=== PATIENT | male | born 1990 | race Caucasian/White ===

== ENCOUNTER 2017-07-27 17:52 | Emergency (ER) | payer SELFPAY ==
[~2017-07-27] VITALS: Ht 188 cm; Wt 74.1 kg
[~2017-07-27 17:52] MED LIST: FLEXERIL 1010 MG/TAB PO; MOTRIN 800800 MG/TAB PO; NORCO 325 MG-51 TAB PO; PROMETHAZINE12.5 M5 PO; ZOFRAN 4MG T4 MG/TAB PO
[2017-07-27 17:55] VITALS: TEMP 98.6
[2017-07-27 18:38] LABS: COLLECTION METHOD CLEAN CATCH
[2017-07-27 18:41] LABS: BASO # 0.1 (0.0-0.2); BASO % 0.5 % (0.0-2.0); EOS # 0.1 (0.0-0.7); EOS % 0.7 % (0-4.0); GRAN % 61.5 % (42.2-75.2); HEMATOCRIT 47.6 % (42.0-52.0); LYMPH # 2.8 (1.2-3.4); LYMPH % 28.6 % (20.0-51.0); MEAN CELL VOLUME 88 fl (80.0-100.0); MEAN CORPUSCULAR HEMOGLOBIN 29 pg (27.0-31.0); MEAN CORPUSCULAR HGB CONC 34 g/dl (33.0-37.0); MEAN PLATELET VOLUME 9.6 fl (7.4-10.4); MONO # 0.8 (0.1-0.6); MONO % 8.4 % (1.7-9.3); PLATELET COUNT 267 K/mm3 (130-400); RED BLOOD COUNT 5.44 M/mm3 (4.20-5.60); WHITE BLOOD COUNT 9.8 K/mm3 (4.8-10.8)
[2017-07-27 18:47] LABS: PH 6 (5-8); SQUAMOUS EPITHELIAL None Seen /hpf; URINE APPEARANCE Clear; URINE BACTERIA None Seen /hpf; URINE BILIRUBIN Negative (NEGATIVE); URINE BLOOD Negative (NEGATIVE); URINE COLOR Yellow; URINE GLUCOSE Negative (NEGATIVE); URINE KETONE Negative (NEGATIVE); URINE LEUKOCYTE ESTERASE Negative (NEGATIVE); URINE PROTEIN(semi-quant) Negative (NEGATIVE); URINE RBC 0-2 /hpf; URINE UROBILINOGEN Negative (NEGATIVE); URINE WBC 0-2 /hpf
[2017-07-27 18:56] LABS: ALBUMIN 5.3 gm/dL (3.5-5.0); BILIRUBIN,TOTAL 0.9 mg/dL (0.0-1.0); CREATININE, serum 0.84 mg/dL (0.66-1.25); POTASSIUM 3.7 mmol/L (3.4-5.0); TOTAL PROTEIN 8.4 gm/dL (6.4-8.2)
[2017-07-27] MEDS ORDERED: ZOFRAN ODT4 MG PO (19:46)
[2017-07-27 19:57] VITALS: BP 131/71; PULSE 82
== END 2017-07-27 19:59 | disposition home or self-care (01) ==
LOC: COL.ER 17:52
PROVIDERS: Nurse Practitioner
DX: R10.13 Epigastric pain (principal); R11.10 Vomiting, unspecified; F17.290 Nicotine dependence, other tobacco product, uncomplicated
CPT/HCPCS: J1885; J2405; J7030

== ENCOUNTER 2017-10-28 18:33 | Emergency (ER) | payer SELFPAY ==
[~2017-10-28] VITALS: Ht 188 cm; Wt 73.3 kg
[~2017-10-28 18:33] MED LIST changes: +ZOFRAN ODT4 MG PO
[2017-10-28 18:40] VITALS: BP 119/70; TEMP 98.9
[2017-10-28 19:45] LABS: BASO % 0.4 % (0.0-2.0); EOS # 0.1 (0.0-0.7); EOS % 1.2 % (0-4.0); GRAN # 5.2 (1.4-6.5); GRAN % 64.8 % (42.2-75.2); HEMOGLOBIN 15.2 g/dl (13.5-18.0); LYMPH # 2.2 (1.2-3.4); LYMPH % 27.1 % (20.0-51.0); MEAN CELL VOLUME 87 fl (80.0-100.0); MEAN CORPUSCULAR HEMOGLOBIN 30 pg (27.0-31.0); MEAN CORPUSCULAR HGB CONC 34 g/dl (33.0-37.0); MEAN PLATELET VOLUME 9.6 fl (7.4-10.4); MONO # 0.5 (0.1-0.6); MONO % 6.4 % (1.7-9.3); PLATELET COUNT 293 K/mm3 (130-400); RED BLOOD COUNT 5.15 M/mm3 (4.20-5.60)
[2017-10-28 19:58] LABS: ALBUMIN 4.7 gm/dL (3.5-5.0); BILIRUBIN,TOTAL 0.4 mg/dL (0.0-1.0); C-REACTIVE PROTEIN 1.8 mg/dL (0.0-0.9); CALCIUM 9.3 mg/dL (8.4-10.2); CREATININE, serum 0.8 mg/dL (0.66-1.25); POTASSIUM 4.3 mmol/L (3.4-5.0); TOTAL PROTEIN 7.6 gm/dL (6.4-8.2)
[2017-10-28] MEDS ORDERED: MEDROL 4MG DOSPA4 MG PO (20:21)
[2017-10-28 20:39] VITALS: PULSE 82
== END 2017-10-28 20:39 | disposition home or self-care (01) ==
LOC: COL.ER 18:33
PROVIDERS: Emergency Medicine
DX: T78.40XA Allergy, unspecified, initial encounter (principal); D89.89 Other specified disorders involving the immune mechanism, not elsewhere classified; Z87.2 Personal history of diseases of the skin and subcutaneous tissue
CPT/HCPCS: J7512